=== PATIENT | female | born 1950 | race African-American/Black ===

== ENCOUNTER 2019-04-27 19:09 | Inpatient (IN) | payer MEDICARE, MEDICAID ==
[~2019-04-27] VITALS: Ht 157.5 cm; Wt 83.0 kg
[~2019-04-27 19:09] MED LIST: ASPIR 8181 MG ORAL; ATORVASTATIN CA20 MG ORAL; FLUOXETINE HCL20 MG ORAL; GABAPENTIN600 MG ORAL; IBUPROFEN600 MG ORAL; LATUDA20 MG PO; LORATADINE10 M1 PO; METFORMIN HCL500 M1 ORAL; METOPROLOL SUCC50 MG ORAL; OXYBUTYNIN5 MG/5 M1 PO
[2019-04-27 19:28] VITALS: BP 133/59
--- NOTE | 2019-04-27 19:28 | NUR ---
ER Nurse Note: Pt c/o shortness of breath since 1 month ago but is worse today. Pt stated she would get short of breath after walking short distances. HR elevated at 112 with deep breathing. Lung sounds clear, S1 and S2 heard. Pt stated hx of some cardiac problem and DM. Will continue to montior.
--- NOTE | 2019-04-27 19:31 | Emergency Room Report ---
History of Present Illness General Chief Complaint: Dyspnea/Respdistress Source: Patient, Medical Record Present Illness HPI Patient is a 68-year-old female presents after increased difficulty with breathing. She reports of increased dyspnea on exertion for the past 1 month. She states that she had noticed increased bilateral leg swelling for similar period of time. She reports having some prior history of abnormal ventricular function but cannot state exactly what she has wrong. She takes metformin for diabetes. She denies any bloody stools. She reports having progressive worsening shortness of breath. She appears to been on he was but is not currently taking any. She denies being a smoker. She had gradual onset of increased dyspnea. Allergies: Coded Allergies: IBUPROFEN (Unverified Allergy, Intermediate, 04/05/16) Patient History Past Medical History: see triage record Reviewed Nursing Documentation: PMH: Agreed; PSxH: Agreed Nursing Documentation-PMH Past Medical History: No History, Except For Hx Cardiac Problems: Yes - stent, heart problem Hx Hypertension: Yes Hx Diabetes: Yes Review of Systems All Other Systems: negative except mentioned in HPI Physical Exam Vital Signs Date Time Temp Pulse Resp B/P (MAP) Pulse Ox O2 Delivery O2 Flow Rate FiO2 04/27/19 19:20 97.9 112 20 133/59 (83) 98 Room Air Sp02 EP Interpretation: reviewed, normal General Appearance: normal inspection, alert, GCS 15, Chronically Ill Head: atraumatic Eyes: bilateral eye PERRL, bilateral eye conjunctivae pale ENT: normal ENT inspection, hearing grossly normal, normal voice Neck: normal inspection, full range of motion, supple, no bony tend Respiratory: normal inspection, lungs clear, normal breath sounds, no respiratory distress, no retraction, no wheezing Cardiovascular #1: regular rate, rhythm, edema Gastrointestinal: normal inspection, normal bowel sounds, non tender, soft, no guarding, no hernia Genitourinary: no CVA tenderness Musculoskeletal: normal inspection, back normal, normal range of motion Neurologic: normal inspection, alert, oriented x3, responsive, insurance attorney III-XII nml as tested, speech normal Psychiatric: normal inspection, judgement/insight normal, mood/affect normal Skin: pallor Medical Decision Making Diagnostic Impression: Primary Impression: Pancytopenia ER Course Patient present for shortness of breath. Differential included but was not limited to anemia, pneumonia, pneumothorax, myocardial infarction, pericardial effusion, congestive heart failure, acidosis. Because of complexity of patient' s case laboratory tests and imaging studies were ordered. Patient was noted to have significant shortness of breath on exertion but seems to be okay at rest. Oxygen was noted to be 100%. Patient a prior history of pancytopenia.Patient is noted to have significant anemia. Patient was started on blood transfusion after informed consent was obtained. Advised patient risk benefits and alternatives of obtaining blood which included infection allergic reactions among others. Patient indicated willingness to proceed with transfusion. Patient was discussed with Dr. Michael Herrera for inpatient management. Labs Test 04/27/19 19:25 04/27/19 20:18 White Blood Count 2.8 K/UL (4.8-10.8) Red Blood Count 2.48 M/UL (4.20-5.40) Hemoglobin 3.7 G/DL (12.0-16.0) Hematocrit 14.2 % (37.0-47.0) Mean Corpuscular Volume 57 FL (80-99) Mean Corpuscular Hemoglobin 15.1 PG (27.0-31.0) Mean Corpuscular Hemoglobin Concent 26.3 G/DL (32.0-36.0) Red Cell Distribution Width 15.3 % (11.6-14.8) Platelet Count 45 K/UL (150-450) Mean Platelet Volume 5.8 FL (6.5-10.1) Neutrophils (%) (Auto) % (45.0-75.0) Lymphocytes (%) (Auto) % (20.0-45.0) Monocytes (%) (Auto) % (1.0-10.0) Eosinophils (%) (Auto) % (0.0-3.0) Basophils (%) (Auto) % (0.0-2.0) Differential Total Cells Counted 100 Neutrophils % (Manual) 41 % (45-75) Lymphocytes % (Manual) 47 % (20-45) Monocytes % (Manual) 6 % (1-10) Eosinophils % (Manual) 5 % (0-3) Basophils % (Manual) 1 % (0-2) Band Neutrophils 0 % (0-8) Platelet Estimate Decreased Platelet Morphology Normal Polychromasia 1+ Hypochromasia 3+ Anisocytosis 3+ Microcytosis 3+ Prothrombin Time 12.3 SEC (9.30-11.50) Prothromb Time International Ratio 1.2 (0.9-1.1) Activated Partial Thromboplast Time 28 SEC (23-33) Sodium Level 139 MMOL/L (136-145) Potassium Level 4.0 MMOL/L (3.5-5.1) Chloride Level 108 MMOL/L (98-107) Carbon Dioxide Level 16 MMOL/L (21-32) Anion Gap 15 mmol/L (5-15) Blood Urea Nitrogen 13 mg/dL (7-18) Creatinine 1.0 MG/DL (0.55-1.30) Estimat Glomerular Filtration Rate > 60 mL/min (>60) Glucose Level 116 MG/DL (74-106) Calcium Level 8.4 MG/DL (8.5-10.1) Total Bilirubin 0.6 MG/DL (0.2-1.0) Aspartate Amino Transf (AST/SGOT) 45 U/L (15-37) Alanine Aminotransferase (ALT/SGPT) 35 U/L (12-78) Alkaline Phosphatase 159 U/L (46-116) Troponin I 0.016 ng/mL (0.000-0.056) Pro-B-Type Natriuretic Peptide 894 pg/mL (0-125) Total Protein 7.4 G/DL (6.4-8.2) Albumin 2.8 G/DL (3.4-5.0) Globulin 4.6 g/dL Albumin/Globulin Ratio 0.6 (1.0-2.7) Lipase 446 U/L (73-393) Thyroid Stimulating Hormone (TSH) 3.668 uiU/mL (0.358-3.740) Urine Color Pale yellow Urine Appearance Clear Urine pH 7 (4.5-8.0) Urine Specific [place] 1.005 (1.005-1.035) Urine Protein 1+ (NEGATIVE) Urine Glucose (UA) Negative (NEGATIVE) Urine Ketones Negative (NEGATIVE) Urine Blood Negative (NEGATIVE) Urine Nitrite Negative (NEGATIVE) Urine Bilirubin Negative (NEGATIVE) Urine Urobilinogen Normal MG/DL (0.0-1.0) Urine Leukocyte Esterase 2+ (NEGATIVE) Urine RBC 0-2 /HPF (0 - 2) Urine WBC 2-4 /HPF (0 - 2) Urine Squamous Epithelial Cells Few /LPF (NONE/OCC) Urine Bacteria Few /HPF (NONE) EKG Diagnostic Results Rate: normal Rhythm: NSR ST Segments: no acute changes Last Vital Signs Date Time Temp Pulse Resp B/P (MAP) Pulse Ox O2 Delivery O2 Flow Rate FiO2 04/27/19 19:20 97.9 112 20 133/59 (83) 98 Room Air Status: unchanged Disposition: ADMITTED INPATIENT Condition: Serious Michael Cruz MD Apr 27, 2019 19:31
[2019-04-27 19:47] LABS: HEMATOCRIT 14.2 % (37.0-47.0); MEAN CORPUSCULAR VOLUME 57 FL (80-99); PLATELET COUNT 45 K/UL (150-450); RED BLOOD COUNT 2.48 M/UL (4.20-5.40); RED CELL DISTRIBUTION WIDTH 15.3 % (11.6-14.8); WHITE BLOOD COUNT 2.8 K/UL (4.8-10.8)
[2019-04-27 19:59] LABS: INR 1.2 (0.9-1.1)
[2019-04-27 20:00] LABS: HEMOGLOBIN 3.7 G/DL (12.0-16.0)
[2019-04-27 20:02] LABS: ANION GAP 15 mmol/L (5-15); BLOOD UREA NITROGEN 13 mg/dL (7-18); CALCIUM 8.4 MG/DL (8.5-10.1); CARBON DIOXIDE 16 MMOL/L (21-32); CHLORIDE 108 MMOL/L (98-107); SODIUM 139 MMOL/L (136-145)
--- NOTE | 2019-04-27 20:13 | NUR ---
ER Nurse Note: Pt is aware of h&h level. Explained to pt about blood transfusion. Pt understand and consents to transfusion. Pt states first time having blood transfusion. Consent signed.
[2019-04-27 20:14] LABS: ALANINE AMINOTRANSFERASE 35 U/L (12-78); ALBUMIN 2.8 G/DL (3.4-5.0); ALBUMIN/GLOBULIN RATIO 0.6 (1.0-2.7); ALKALINE PHOSPHATASE 159 U/L (46-116); ASPARTATE AMINO TRANSFERASE 45 U/L (15-37); BILIRUBIN,TOTAL 0.6 MG/DL (0.2-1.0)
[2019-04-27 20:52] LABS: APPEARANCE,URINE CLEAR; BILIRUBIN, URINE NEGATIVE (NEGATIVE); COLOR,URINE PALE YELLOW; GLUCOSE, URINE (UA) NEGATIVE (NEGATIVE); KETONES,URINE NEGATIVE (NEGATIVE); LEUKOCYTE ESTERASE ,URINE 2+ (NEGATIVE); NITRITE,URINE NEGATIVE (NEGATIVE); PH,URINE 7 (4.5-8.0); PROTEIN,URINE 1+ (NEGATIVE); UROBILINOGEN,URINE NORMAL MG/DL (0.0-1.0)
[2019-04-27 21:10] VITALS: BP 117/56
[2019-04-27] MEDS ORDERED: Milk of Magnesia 30ml Ud ORAL PRN (21:30)
[2019-04-27 22:40] VITALS: BP 119/60
--- NOTE | 2019-04-27 22:43 | NUR ---
ER Nurse Note: Pt tolerating blood; no reactions, no signs of distress. VSS, no fever. Pt stated breathing is becoming easier. All safety measures met, will continue to motnior.
[2019-04-28] VITALS (10 sets, daily range): BP systolic 121–144; BP diastolic 64–86
--- NOTE | 2019-04-28 00:05 | NUR ---
ER Nurse Note: Pt receiving second unit of RBC. Pt toerating well. VSS, RA, no signs of distress. No beds avilable in SDU. Will ask ERMD for further orders. Alll safety measures met, will continue to montior.
[2019-04-28 01:46] LABS: HEMATOCRIT 17.8 % (37.0-47.0); MEAN CORPUSCULAR VOLUME 62 FL (80-99); PLATELET COUNT 65 K/UL (150-450); RED BLOOD COUNT 2.88 M/UL (4.20-5.40); RED CELL DISTRIBUTION WIDTH 23.8 % (11.6-14.8); WHITE BLOOD COUNT 3.3 K/UL (4.8-10.8)
[2019-04-28 02:00] LABS: HEMOGLOBIN 5.4 G/DL (12.0-16.0)
--- NOTE | 2019-04-28 02:16 | NUR ---
ER Nurse Note: Second unit completed, redraw of labs drawn and sent to lab. Hgb increased, <7 g/dl. Transfusing 3rd unit. No reactions. Will conitnue to motnor.
--- NOTE | 2019-04-28 03:24 | NUR ---
ER Nurse Note: Pt asleep, no signs of distress. Pt easily arousable, RA, VSS. Pt on third unit of blood. Will draw labs for repeat H&H. All safety measurses met; will continue to motnior.
--- NOTE | 2019-04-28 04:10 | NUR ---
ER Nurse Note: Pt a&ox4, VSS, RA, no signs of distress. Pt stated "I am feeling better and can breath easier." Pt is warm to touch, skin color approrate, not pallor, cap refill less than 3 secs. Repeat labs drawn and sent to lab, awaiting results. Pt is on fourth unit of blood; tolerating well. Daughter at bedside. Will continue to motnior.
[2019-04-28 04:24] LABS: HEMATOCRIT 20.7 % (37.0-47.0); MEAN CORPUSCULAR VOLUME 66 FL (80-99); PLATELET COUNT 50 K/UL (150-450); RED BLOOD COUNT 3.14 M/UL (4.20-5.40); RED CELL DISTRIBUTION WIDTH 24.7 % (11.6-14.8); WHITE BLOOD COUNT 2.9 K/UL (4.8-10.8)
[2019-04-28 04:36] LABS: HEMOGLOBIN 6.1 G/DL (12.0-16.0)
--- NOTE | 2019-04-28 05:01 | NUR ---
ER Nurse Note: Report given to ALEXYS Ulrich for continuity of care. Pt stable for transfer. All belongings taken with daughter at bedside.
--- NOTE | 2019-04-28 05:25 | NUR ---
ER Nurse Note: Pt departed ER on 524. Pt took all belongings, checked with primary nurse ALEXYS Rosario in tele. Daughter at bedside. Endorsed care to ALEXYS Rosario for continuity oif care.
--- NOTE | 2019-04-28 05:30 | NUR ---
NURSE NOTES: Pt arrived got ER via gurney. Got report from Marianna REARDON. Pt resting on bed comfortably. No s/s of distress or discomfort noted. No skin issues noted. Pt fully alert and able to answer all of my questions. VSS BP:122/71 HR:91 R:18 O2:99% on room air T: 98.3. Denies any pain. Denies n/v. Pt receiving last unit of blood. Pt ambulates steady. Continue to monitor. All orders put in by Dr. Herrera.
[2019-04-28 05:56] LABS: % IRON SATURATION 2 % (15-50); IRON 11 ug/dL (50-175); TOTAL IRON BINDING CAPACITY 566 ug/dL (250-450)
[2019-04-28 06:10] LABS: ALANINE AMINOTRANSFERASE 33 U/L (12-78); ALBUMIN 2.6 G/DL (3.4-5.0); ALBUMIN/GLOBULIN RATIO 0.6 (1.0-2.7); ALKALINE PHOSPHATASE 142 U/L (46-116); ANION GAP 9 mmol/L (5-15); ASPARTATE AMINO TRANSFERASE 43 U/L (15-37); BILIRUBIN,TOTAL 1.5 MG/DL (0.2-1.0); BLOOD UREA NITROGEN 13 mg/dL (7-18); CALCIUM 8.2 MG/DL (8.5-10.1); CARBON DIOXIDE 21 MMOL/L (21-32); CHLORIDE 111 MMOL/L (98-107); CREATININE 0.9 MG/DL (0.55-1.30); FERRITIN 4 NG/ML (8-388); POTASSIUM 3.5 MMOL/L (3.5-5.1); SODIUM 141 MMOL/L (136-145)
[2019-04-28 06:18] LABS: BILIRUBIN,DIRECT 0.5 MG/DL (0.0-0.3)
[2019-04-28] MEDS: NovoLOG Insulin Flexpen SUBQ SCH ×4 (06:30→21:00)
--- NOTE | 2019-04-28 07:25 | NUR ---
HAND-OFF: Report given to Juan Carlos REARDON.
--- NOTE | 2019-04-28 07:29 | NUR ---
NURSE NOTES: Report received from ALEXYS Rosario. Pt is sitting up in bed eating breakfast, with no signs of distress. A+Ox4, denies pain/SOB. Respirations are even and unlabored on room air. IV sites are intact, with one running remainder of unit of PRBCs. Bed is at lowest position, brakes engaged, siderails x2, bed alarm on, and call light within reach. Pt is in stable condition at this time; will continue to monitor.
--- NOTE | 2019-04-28 08:35 | NUR ---
NURSE NOTES: Dr. Herrera ordered two units of PRBCs pending h+h in newest CBC. Awaiting lab draw and results.
[2019-04-28] MEDS: Metoprolol Succinate XL 50mg tab ORAL SCH (08:55)
--- NOTE | 2019-04-28 09:00 | NUR ---
NURSE NOTES: Unable to fully reconcile medications due to patient and daughter not able to recall what they were. Only able to state that she takes metformin and does use insulin. Per daughter she takes a lot of medications.
[2019-04-28 09:46] LABS: HEMATOCRIT 24.4 % (37.0-47.0); HEMOGLOBIN 7.3 G/DL (12.0-16.0); MEAN CORPUSCULAR VOLUME 67 FL (80-99); PLATELET COUNT 60 K/UL (150-450); RED BLOOD COUNT 3.64 M/UL (4.20-5.40); RED CELL DISTRIBUTION WIDTH 24.5 % (11.6-14.8); WHITE BLOOD COUNT 2.7 K/UL (4.8-10.8)
--- NOTE | 2019-04-28 11:02 | NUR ---
NURSE NOTES: hgb 7.3. Per Dr. Herrera, transfuse two units. Will go down and get blood after setting up tubing.
--- NOTE | 2019-04-28 11:30 | History and Physical Report ---
DATE OF ADMISSION: 04/27/2019 CHIEF COMPLAINT: Anemia and pancytopenia. HISTORY OF PRESENT ILLNESS: The patient is a 68-year-old female. She has a history of diabetes, hypertension, hepatitis C. She presented from home with complaints of one month of worsening dyspnea on exertion and shortness of breath. The patient denies any chest pain. On evaluation in the emergency room, she was noted to have a hemoglobin of 3.7 and a white count of 2.8, platelet count of 45. She is currently status post transfusion, is now admitted for further evaluation and care. PAST MEDICAL HISTORY: As above. PAST SURGICAL HISTORY: None. CURRENT MEDICATIONS: Reconciled and reviewed. ALLERGIES: Include ibuprofen. FAMILY HISTORY: Noncontributory. SOCIAL HISTORY: Negative for tobacco, ethanol, or drugs. REVIEW OF SYSTEMS: GENERAL: No fevers or chills. HEENT: No headaches or visual changes. CARDIOPULMONARY: Positive shortness of breath, but no chest pain. Positive dyspnea on exertion. GASTROINTESTINAL: No nausea or vomiting. GENITOURINARY: No urgency or frequency. MUSCULOSKELETAL: No joint pain or swelling. NEUROLOGIC: No evidence of seizures. PHYSICAL EXAMINATION: VITAL SIGNS: Temperature 98.3, pulse 91, respirations 18, and blood pressure 122/71. GENERAL: The patient is well-developed, no apparent distress. HEART: Regular rate and rhythm. LUNGS: Clear. ABDOMEN: Soft, nontender, nondistended. EXTREMITIES: Without clubbing, cyanosis, or edema. LABORATORY DATA: Labs showed a white count of 2.8, hemoglobin 3.7, hematocrit of 14, platelet count of 45. Sodium 139, potassium 4, chloride 108, bicarb 16. AST was 45, ALT 35. Bilirubin of 1.5. Natriuretic peptide level was 894. Lipase of 446. UA was clear. ASSESSMENT: This is a pleasant 68-year-old female admitted with complaints of dyspnea on exertion secondary to anemia of unclear etiology. PROBLEM LIST: 1. Severe anemia. 2. Rule out GI bleed. 3. Diabetes. 4. Hypertension. PLAN: Transfuse hemoglobin greater than 8. Hematology/Oncology consultation. Check stool for occult blood. Iron infusion for low iron. Consider GI evaluation for colonoscopy. Michael Herrera M.D. DR: MENA JOB#: [id number] CC:
--- NOTE | 2019-04-28 11:53 | NUR ---
NURSE NOTES: Blood tranfusion started. No s/s of reaction after 15min. Patient stable and resting comfortably. Will continue to monitor.
--- NOTE | 2019-04-28 14:07 | NUR ---
NURSE NOTES: Pt going down for CT.
--- NOTE | 2019-04-28 14:25 | NUR ---
NURSE NOTES: Patient back from CT. Blood transfusion continued
--- NOTE | 2019-04-28 15:24 | NUR ---
CASE MANAGEMENT:REVIEW 68 YR OLD FEMALE BIBA FROM HOME CC; WORSENING SOB SI: SYMPTOMATIC ANEMIA. PANCYTOPENIA 97.9 112 20 133/59 98% ON RA 'WBC-2.8 RBC-2.4 H/H-3.7/14.2 PLT-45 LIPASE+446 IS: 5 UNITS PRBC'S ORDERED TRANSFUSED 2 UNITS : TO TELEMETRY *INTERQUAL CRITERIA MET 04/28/19 SI: H/H-5.4/17.8 IS: TRANSFUSE 3 UNITS PRBC'S : TELEMETRY
--- NOTE | 2019-04-28 15:52 | NUR ---
NURSE NOTES: Unit of PRBC complete. Second unit started. Patient stable with RR even and unlabored.VSS. No s/s of reaction after 15min. Will continue to monitor.
--- NOTE | 2019-04-28 15:52 | Diagnostic Imaging Report ---
Indication: Abdominal pain Technique: Continuous helical transaxial imaging of the abdomen and pelvis was obtained from the lung bases to the pubic symphysis. No intravenous contrast was administered. Coronal 2-D reformats were also obtained. Automatic Exposure Control was utilized. Total Dose length Product (DLP): [address] Dose Index Volume (CTDIvol): 50 mGy Comparison: none Findings: Somewhat nodular ill-defined groundglass opacities noted at the lung bases nonspecific. The spleen is enlarged. There is nodularity of the liver. There is increase opacification in the area of the upper stomach and distal esophagus likely portosystemic varices. There is thickening of the gallbladder wall. Aortoiliac calcifications are moderate in degree. Bowel gas pattern appears nonobstructive. There is a left hip prosthesis and streak artifact. Few diverticula noted in the colon. The appendix is normal. Generalized subcutaneous edema noted throughout the abdomen wall. There is no hydronephrosis. IMPRESSION: Chronic liver disease/cirrhosis with signs of portal hypertension including splenomegaly and suspected portosystemic varices surrounding the distal esophagus and stomach. Normal appendix Anasarca Thickening of the gallbladder wall nonspecific. Diverticulosis of the colon. No definite diverticulitis. Atherosclerotic vascular disease. Left total hip arthroplasty The CT scanner at [facility] is accredited by the [employer] and the scans are performed using dose optimization techniques as appropriate to a performed exam including Automatic Exposure control.
[2019-04-28] MEDS: Spironolactone 25mg tab ORAL SCH (18:35)
--- NOTE | 2019-04-28 19:18 | NUR ---
HAND-OFF: Report given to Bess Mandujano RN. Patient stable. Blood transfusion completed with no adverse events.
--- NOTE | 2019-04-28 19:19 | NUR ---
NURSE NOTES: Received report from Liza/ALEXYS Chavez. Patient is awake, lying in semi combs's; resting comfortably. A/Ox4. Denies pain at this time. No signs of acute cardiorespiratory distress noted. Checked IV site and flushed. No erythema, bleeding or infiltration noted. Bed at lowest position, brakes on, siderailx3. Call light within reach. Will continue to monitor.
--- NOTE | 2019-04-28 19:51 | Cardiology Report ---
APPROVED REPORT EKG Measurement Heart [id number] MI [id number] Sinus tachycardia Right bundle branch block and LAFB (Bifascicular block) Abnormal ECG
[2019-04-28] MEDS: Atorvastatin 20mg tab ORAL SCH (21:53)
[2019-04-28] MEDS: Iron Sucrose 100 MG in NS 55 ML IV SCH (21:54)
--- NOTE | 2019-04-28 23:30 | Progress Note ---
DATE: 04/28/2019 CARDIOLOGY PROGRESS NOTE SUBJECTIVE: The patient is status post packed red blood cell transfusion x2. She still feels weak and fatigued, but less short of breath. She denies chest pain. OBJECTIVE: VITAL SIGNS: Blood pressure 121/86, pulse 73, respirations 18, afebrile. LUNGS: Clear. CARDIAC: Regular rhythm and rate. Normal S1, S2 with a fourth heart sound and a 1/6 systolic murmur at base. ABDOMEN: Soft. EXTREMITIES: Trace dependent edema. LABORATORY DATA: White count 2.7, hemoglobin 7.3, platelets 60. Potassium 3.5, albumin 2.6. IMPRESSION: 1. Pancytopenia. 2. Acute diastolic congestive heart failure precipitated by severe anemia. 3. Hypertensive heart disease. 4. Stable angina. 5. Coronary artery disease with prior coronary stent. 6. Severe iron deficiency. 7. Chronic liver disease. 8. Moderate protein-calorie malnutrition. PLAN: 1. Nasal oxygen. 2. IV iron. 3. SCDs. 4. Maintain current antihypertensives. 5. Avoid antiplatelet and anticoagulant therapy at this time. Shaggy Babcock M.D. DR: LSELIE JOB#: [id number] CC:
[2019-04-29] VITALS: BP 121/60
[2019-04-29 04:00] VITALS: BP 124/61
--- NOTE | 2019-04-29 04:15 | Consultation ---
DATE OF CONSULTATION: 04/27/2019 CARDIOLOGY CONSULTATION CONSULTING PHYSICIAN: Shaggy Babcock M.D. REFERRING PHYSICIAN: Michael Herrera M.D. REASON FOR CONSULTATION: Congestive heart failure in the setting of severe anemia. HISTORY OF PRESENT ILLNESS: The patient is a 68-year-old, female. She has a history of hypertension but no other cardiovascular disease. She has had difficulty breathing and has been increasingly short of breath with exertion for the past month. She has noted swelling of her legs during this period as well. She states that her blood pressure has affected her heart but it has been "okay" She denies any history of chest pain or heart attack in the past. She was noted to have an elevated natriuretic peptide assay. I have been asked to assist with cardiovascular care. PAST MEDICAL HISTORY: Non-insulin requiring diabetes mellitus, hypertension, history of coronary stent. ALLERGIES: Include ibuprofen. SOCIAL HISTORY: Negative for smoking, alcohol, or substance abuse. FAMILY HISTORY: Noncontributory. MEDICATIONS: Prior to admission, reviewed and reconciled. REVIEW OF SYSTEMS: No fevers or chills. No history of seizure or stroke. No known history of thyroid disorder. She does not know her cholesterol level and does not take any anticholesterol drugs. She has not noted any melena or bright red blood per rectum. She denies history of kidney disease. There is no history of asthma or abnormal blood clotting. PHYSICAL EXAMINATION: VITAL SIGNS: Blood pressure 133/59, pulse 112, respiratory rate 20, afebrile. HEENT: Normocephalic and atraumatic. Conjunctival pallor. Oropharynx clear. NECK: Supple. Jugular venous pressure normal. LUNGS: Clear. CARDIAC: Regular rhythm. Rapid rate. Normal S1, increased splitting S2. A 1/6 systolic murmur at base. ABDOMEN: Soft and nontender. EXTREMITIES: Good pulses. A 1+ dependent edema. NEUROLOGIC: Nonfocal. LABORATORY AND DIAGNOSTIC DATA: EKG sinus tachycardia, left anterior superior hemiblock, right bundle-branch block. Labs, pro-natriuretic peptide is 894. Troponin 0.016. BUN 13, creatinine 1, potassium 4. TSH 3.6. White count 2.8, hemoglobin 3.7, and platelet count 45,000. IMPRESSION: 1. Severe pancytopenia. 2. Acute diastolic congestive heart failure precipitated by severe anemia. 3. Coronary artery disease with history of coronary stent. 4. Hypertensive heart disease. 5. Type 2 diabetes mellitus. PLAN: 1. Cardiac monitoring. 2. Nasal oxygen. 3. Packed red blood cell transfusion. 4. Hold all anti-platelet drugs. 5. Consider topical nitrates. 6. Echocardiogram to follow for evaluation of left ventricular function. 7. Trend natriuretic peptide assay. Shaggy Babcock M.D. DR: Tom JOB#: [id number] CC:
--- NOTE | 2019-04-29 05:11 | NUR ---
NURSE NOTES: Resting throughout the night. No significant change of condition noted. Will continue to monitor.
[2019-04-29] MEDS: NovoLOG Insulin Flexpen SUBQ SCH ×4 (06:23→20:35)
[2019-04-29 07:04] LABS: HEMATOCRIT 30.1 % (37.0-47.0); HEMOGLOBIN 9.3 G/DL (12.0-16.0); MEAN CORPUSCULAR VOLUME 69 FL (80-99); PLATELET COUNT 54 K/UL (150-450); RED BLOOD COUNT 4.34 M/UL (4.20-5.40); RED CELL DISTRIBUTION WIDTH 23.7 % (11.6-14.8); WHITE BLOOD COUNT 3.2 K/UL (4.8-10.8)
--- NOTE | 2019-04-29 07:23 | NUR ---
HAND-OFF: Report given to ALEXYS Chavez. Patient is in stable condition. Plan of care endorsed.
--- NOTE | 2019-04-29 07:24 | NUR ---
NURSE NOTES: Report received from ALEXYS Kellogg. Pt is lying comfortably in semi-fowlers. A+Ox4, denies pain/SOB. Respirations are even and unlabored on room air. IV site in intact and saline locked. Bed is at lowest position, brakes engaged, siderails x2, bed alarm on, and call light within reach. Pt is in stable condition at this time; will continue to monitor.
[2019-04-29 07:38] LABS: ANION GAP 9 mmol/L (5-15); BLOOD UREA NITROGEN 14 mg/dL (7-18); CARBON DIOXIDE 22 MMOL/L (21-32); CHLORIDE 106 MMOL/L (98-107); CREATININE 0.9 MG/DL (0.55-1.30); POTASSIUM 3.5 MMOL/L (3.5-5.1); SODIUM 137 MMOL/L (136-145)
[2019-04-29 08:00] VITALS: BP 120/66
--- NOTE | 2019-04-29 08:27 | General Progress Note ---
Assessment/Plan Problem List: (1) Anemia ICD Codes: D64.9 - Anemia, unspecified SNOMED: 006737574 (2) Cirrhosis ICD Codes: K74.60 - Unspecified cirrhosis of liver SNOMED: 23256246 (3) Transaminitis ICD Codes: R74.0 - Nonspecific elevation of levels of transaminase and lactic acid dehydrogenase [LDH] SNOMED: 770581408 (4) Pancytopenia ICD Codes: D61.818 - Other pancytopenia SNOMED: 093594114 (5) Syncope ICD Codes: R55 - Syncope and collapse SNOMED: 835683575 Status: stable Assessment/Plan: PPI monitor for bleeding stool ob iron replacement heme and GI eval Subjective ROS Limited/Unobtainable: No Constitutional: Reports: weakness HEENT: Reports: no symptoms Cardiovascular: Reports: no symptoms Respiratory: Reports: no symptoms Gastrointestinal/Abdominal: Reports: no symptoms Genitourinary: Reports: no symptoms Neurologic/Psychiatric: Reports: no symptoms Endocrine: Reports: no symptoms Hematologic/Lymphatic: Reports: anemia Allergies: Coded Allergies: IBUPROFEN (Unverified Allergy, Intermediate, 04/05/16) All Systems: reviewed and negative except above Subjective no events. s/p transfusion. feels "better." decreased sob/degroot. no signs of bleeding ct with ?cirrhosis stool ob pending Objective Last 24 Hour Vital Signs Date Time Temp Pulse Resp B/P (MAP) Pulse Ox O2 Delivery O2 Flow Rate FiO2 04/29/19 08:00 98.3 82 18 120/66 (84) 97 04/29/19 04:00 97.3 72 18 124/61 (82) 95 04/29/19 04:00 81 04/29/19 00:00 75 04/29/19 00:00 97.0 77 19 121/60 (80) 95 04/28/19 21:00 Room Air 04/28/19 20:00 97.3 79 18 126/76 (93) 97 04/28/19 20:00 72 04/28/19 16:00 98.3 75 18 144/83 (103) 99 04/28/19 16:00 76 04/28/19 12:00 74 04/28/19 12:00 98.0 73 18 121/86 (98) 100 04/28/19 08:58 Room Air 04/28/19 08:55 97 140/83 Intake and Output 04/28/19 04/29/19 19:00 07:00 Intake Total 730 ml Balance 730 ml Intake Oral 730 ml # Voids 3 # Bowel Movements 4 Laboratory Tests 04/28/19 09:10: White Blood Count 2.7L, Red Blood Count 3.64L, Hemoglobin 7.3L, Hematocrit 24.4L , Mean Corpuscular Volume 67L, Mean Corpuscular Hemoglobin 20.0L, Mean Corpuscular Hemoglobin Concent 29.9L, Red Cell Distribution Width 24.5H, Platelet Count 60L, Mean Platelet Volume 7.5, Neutrophils (%) (Auto) , Lymphocytes (%) (Auto) , Monocytes (%) (Auto) , Eosinophils (%) (Auto) , Basophils (%) (Auto) , Differential Total Cells Counted 100, Neutrophils % ( Manual) 55, Lymphocytes % (Manual) 31, Monocytes % (Manual) 10, Eosinophils % ( Manual) 4H, Basophils % (Manual) 0, Band Neutrophils 0, Platelet Estimate DecreasedL, Platelet Morphology Normal, Hypochromasia 2+, Anisocytosis 3+, Microcytosis 2+ 04/29/19 05:21: White Blood Count 3.2L, Red Blood Count 4.34, Hemoglobin 9.3L, Hematocrit 30.1L , Mean Corpuscular Volume 69L, Mean Corpuscular Hemoglobin 21.5L, Mean Corpuscular Hemoglobin Concent 31.0L, Red Cell Distribution Width 23.7H, Platelet Count 54L, Mean Platelet Volume 6.8, Neutrophils (%) (Auto) , Lymphocytes (%) (Auto) , Monocytes (%) (Auto) , Eosinophils (%) (Auto) , Basophils (%) (Auto) , Neutrophils % (Manual) [Pending], Lymphocytes % (Manual) [Pending], Platelet Estimate [Pending], Platelet Morphology [Pending], Sodium Level 137, Potassium Level 3.5, Chloride Level 106, Carbon Dioxide Level 22, Anion Gap 9, Blood Urea Nitrogen 14, Creatinine 0.9, Estimat Glomerular Filtration Rate > 60, Glucose Level 119H, Calcium Level 8.0L, Magnesium Level 1.7L, Thyroid Stimulating Hormone (TSH) 2.978 Height (Feet): 5 Height (Inches): 2.00 Weight (Pounds): 184 General Appearance: WD/WN, alert Neck: normal inspection Cardiovascular: normal rate, regular rhythm Respiratory/Chest: chest wall non-tender, lungs clear, normal breath sounds, no respiratory distress Abdomen: normal bowel sounds, non tender, soft, no organomegaly Edema: no edema noted Arm (L), no edema noted Arm (R), no edema noted Leg (L), no edema noted Leg (R), no edema noted Pedal (L), no edema noted Pedal (R), no edema noted Generalized Michael Herrera MD Apr 29, 2019 08:27
[2019-04-29] MEDS: Metoprolol Succinate XL 50mg tab ORAL SCH (09:09)
[2019-04-29] MEDS: Spironolactone 25mg tab ORAL SCH (09:09)
[2019-04-29] MEDS ORDERED: Tubing IV Secondary IV ONE (10:02)
--- NOTE | 2019-04-29 10:47 | NUR ---
CASE MANAGEMENT:REVIEW 04/29/19 SI: ANEMIA. CIRRHOSIS. PANCYTOPENIA 98.3 82 18 120/66 97% ON RA WBC-3.2 H/H-9.3/30.1 PLT-54 IS: IV MAG SULFATE X1 IV VENOFER QHS ALDACTONE PO QD PROZAC PO QD TOPROL XL PO QD : TELEMETRY STATUS DCP: RETURN HOME UPON DISCHARGE PLAN: 2DECHO GI CONSULT HEMOC CONSULT
--- NOTE | 2019-04-29 11:00 | NUR ---
NURSE NOTES: Pt aware of the need for a stool sample for occult blood. Awaiting next bowel movement.
[2019-04-29 12:00] VITALS: BP 128/63
[2019-04-29 15:43] VITALS: BP 123/69
--- NOTE | 2019-04-29 16:33 | NUR ---
*-* INSURANCE *-* ALL CLINICALS AND REVIEWS HAVE BEEN FAXED TO: [employer] GOME[employer]:KATHIE WALTER# [id number] P: [phone] F: [phone]
--- NOTE | 2019-04-29 18:24 | Cardiology Report ---
APPROVED REPORT EXAM: Two-dimensional and M-mode echocardiogram with Doppler and color Doppler. INDICATION Congestive Heart Failure M-Mode DIMENSIONS IVSd1.1 (0.7-1.1cm)Left Atrium (MM)2.8 (1.6-4.0cm) LVDd4.6 (3.5-5.6cm)Aortic Root2.8 (2.0-3.7cm) PWd1.1 (0.7-1.1cm)Aortic Cusp Exc.1.0 (1.5-2.0cm) IVSs1.7 cm LVDs3.0 (2.5-4.0cm) PWs1.1 cm Technically difficult study due to poor parasternal acoustical windows. Normal left ventricular chamber size, low normal systolic function and wall motion to extent visualize except akinetic thinned proximal to mid posterior wall hypokintic prox to mid inferior wall and mid inferolatereal reese Left ventricular ejection fraction estimated to be 50%. No left ventricular hypertrophy. No evidence of pericardial effusion. Mild left atrial enlargement . Right cardiac chamber sizes are within normal limits. Aortic valve calcification with decreased cusp excursion c/w aortic stenosis. Thickened mitral valve leaflets with normal excursion. Mitral annulus and aortic root calcification. Normal pulmonic valve structure. Normal tricuspid valve structure. IVC dilated at 2.7 cm with slightly physiologic collapse suggestive of increased RA pressure. A color flow and spectral Doppler study was performed and revealed: Trace aortic regurgitation. Peak aortic valve gradient of 51 mm Hg and a mean of 29 mmHg. Aortic valve area 1.1 cm2 calculated by continuity equation. Moderate mitral regurgitation. Mitral diastolic velocities suggest reduced left ventricular relaxation c/w mild LV diastolic dysfunction (Grade I ). Moderate tricuspid regurgitation. Tricuspid systolic velocities suggests peak right ventricular systolic pressure of 46 mmHg, consistent with moderate pulmonary hypertension. Mild Pulmonic regurgitation present.
--- NOTE | 2019-04-29 19:18 | NUR ---
HAND-OFF: Report given to ALEXYS Lucero. Pt is sitting up eating a snack, in stable condition. Plan of care endorsed.
--- NOTE | 2019-04-29 19:51 | NUR ---
NURSE NOTES: Received patient from ALEXYS Chavez. Patient is alert, talkative, and sitting in bed comfortably eating a snack. No signs of distress or pain noted. Patient is ambulatory, wearing nonslip socks, and able to make needs known. IV site checked, patent and intact, no signs of erythema, redness, infiltration, or bleeding. Bed in lowest position, brakes on, and call light within reach. Will continue plan of care.
[2019-04-29 20:00] VITALS: BP 118/58
[2019-04-29] MEDS: Atorvastatin 20mg tab ORAL SCH (20:35)
[2019-04-29] MEDS: Iron Sucrose 100 MG in NS 55 ML IV SCH (20:36)
[2019-04-30] VITALS: BP 111/59
--- NOTE | 2019-04-30 00:15 | Progress Note ---
DATE: 04/29/2019 CARDIOLOGY PROGRESS NOTE SUBJECTIVE: The patient is status post transfusion. Shortness of breath is improved, but not resolved. OBJECTIVE: VITAL SIGNS: Blood pressure 120/66, pulse 82, respirations 16, afebrile. LUNGS: With few rales. CARDIAC: Regular rhythm and rate. Normal S1, S2. A 1/6 systolic murmur at apex. ABDOMEN: Soft. No ascites. EXTREMITIES: 1+ dependent edema. LABORATORY DATA: White count 3.3, hemoglobin 9.3, platelets 54,000. TSH 2.9. Sodium 137, potassium 3.5, bicarb 22, BUN 14, creatinine 0.9, magnesium 1.7. Echocardiogram was obtained today and reviewed. The study reveals normal ejection fraction, although wall motion could not be assessed. There was mild aortic valve stenosis with valve area of 1.1 cm2 and exgf-[id number] pulmonary hypertension with PA systolic pressure estimate of 46. IMPRESSION: 1. Cirrhosis. 2. Acute on chronic diastolic congestive heart failure. 3. Hypomagnesemia. 4. Iron deficiency. 5. Ischemic heart disease. 6. Hypertensive heart disease. PLAN: 1. IV iron. 2. IV magnesium replacement. 3. Follow up stool occult blood test. 4. Maximize anti-failure regimen. 5. Hold anti-platelet drugs in view of low platelet count. 6. Avoid hypovolemia and tight blood pressure control in the setting of aortic stenosis. Shaggy Babcock M.D. DR: LESLIE JOB#: [id number] CC:
--- NOTE | 2019-04-30 03:17 | NUR ---
NURSE NOTES: Patient asleep and resting comfortably. No signs of distress or pain. Bed in lowest position, brakes on, call light within reach.
[2019-04-30 04:00] VITALS: BP 114/65
[2019-04-30] MEDS: NovoLOG Insulin Flexpen SUBQ SCH ×4 (06:24→20:35)
[2019-04-30 06:33] LABS: HEMATOCRIT 29.3 % (37.0-47.0); MEAN CORPUSCULAR VOLUME 70 FL (80-99); PLATELET COUNT 56 K/UL (150-450); RED BLOOD COUNT 4.21 M/UL (4.20-5.40); RED CELL DISTRIBUTION WIDTH 24.3 % (11.6-14.8); WHITE BLOOD COUNT 3.6 K/UL (4.8-10.8)
[2019-04-30 07:00] LABS: ALANINE AMINOTRANSFERASE 36 U/L (12-78); ALBUMIN 2.6 G/DL (3.4-5.0); ALBUMIN/GLOBULIN RATIO 0.6 (1.0-2.7); ALKALINE PHOSPHATASE 135 U/L (46-116); ANION GAP 8 mmol/L (5-15); ASPARTATE AMINO TRANSFERASE 55 U/L (15-37); BILIRUBIN,TOTAL 1.1 MG/DL (0.2-1.0); BLOOD UREA NITROGEN 13 mg/dL (7-18); CALCIUM 8.3 MG/DL (8.5-10.1); CARBON DIOXIDE 23 MMOL/L (21-32); CHLORIDE 108 MMOL/L (98-107); CREATININE 0.8 MG/DL (0.55-1.30); POTASSIUM 3.5 MMOL/L (3.5-5.1); SODIUM 139 MMOL/L (136-145)
[2019-04-30 07:01] LABS: BILIRUBIN,DIRECT 0.4 MG/DL (0.0-0.3)
--- NOTE | 2019-04-30 07:10 | NUR ---
NURSE NOTES: Nurse report given by Ingrid RN. Patient's awake and eating breakfast in bed, high combs position. Patient's AO x 4, denies pain, no s/s of distress or SOB. Bed low and locked, call light within reach. IV is patent and asymptomatic. Will continue to monitor.
--- NOTE | 2019-04-30 07:32 | NUR ---
HAND-OFF: Report given to ALEXYS Lindquist. Patient is awake lying high-combs's eating breakfast. In stable condition.
[2019-04-30 08:00] VITALS: BP 121/48
--- NOTE | 2019-04-30 09:15 | General Progress Note ---
Assessment/Plan Problem List: (1) Anemia ICD Codes: D64.9 - Anemia, unspecified SNOMED: 357052002 (2) Cirrhosis ICD Codes: K74.60 - Unspecified cirrhosis of liver SNOMED: 17072282 (3) Transaminitis ICD Codes: R74.0 - Nonspecific elevation of levels of transaminase and lactic acid dehydrogenase [LDH] SNOMED: 725907663 (4) Pancytopenia ICD Codes: D61.818 - Other pancytopenia SNOMED: 299630211 (5) Syncope ICD Codes: R55 - Syncope and collapse SNOMED: 001389389 Status: stable Assessment/Plan: PPI monitor for bleeding stool ob iron replacement heme and GI eval pending Subjective ROS Limited/Unobtainable: No Constitutional: Reports: malaise, weakness HEENT: Reports: no symptoms Cardiovascular: Reports: no symptoms Respiratory: Reports: no symptoms Gastrointestinal/Abdominal: Reports: no symptoms Genitourinary: Reports: no symptoms Neurologic/Psychiatric: Reports: no symptoms Endocrine: Reports: no symptoms Hematologic/Lymphatic: Reports: anemia Allergies: Coded Allergies: IBUPROFEN (Unverified Allergy, Intermediate, 04/05/16) All Systems: reviewed and negative except above Subjective no events. feels better. no bleeding noted. no cp/sob/degroot Objective Last 24 Hour Vital Signs Date Time Temp Pulse Resp B/P (MAP) Pulse Ox O2 Delivery O2 Flow Rate FiO2 04/30/19 04:00 97.7 80 16 114/65 (81) 96 04/30/19 04:00 85 04/30/19 00:00 74 04/30/19 00:00 98.2 84 18 111/59 (76) 97 04/29/19 21:00 Room Air 04/29/19 20:00 99.4 77 18 118/58 (78) 97 04/29/19 20:00 70 04/29/19 16:00 66 04/29/19 15:43 98.9 69 18 123/69 (87) 98 04/29/19 12:00 67 04/29/19 12:00 97.5 75 18 128/63 (84) 98 Intake and Output 04/29/19 04/30/19 19:00 07:00 Intake Total 850 ml 480 ml Balance 850 ml 480 ml Intake Oral 850 ml 480 ml # Voids 6 4 Laboratory Tests 04/30/19 05:38: White Blood Count 3.6L, Red Blood Count 4.21, Hemoglobin 9.0L, Hematocrit 29.3L , Mean Corpuscular Volume 70L, Mean Corpuscular Hemoglobin 21.3L, Mean Corpuscular Hemoglobin Concent 30.6L, Red Cell Distribution Width 24.3H, Platelet Count 56L, Mean Platelet Volume 7.7, Neutrophils (%) (Auto) , Lymphocytes (%) (Auto) , Monocytes (%) (Auto) , Eosinophils (%) (Auto) , Basophils (%) (Auto) , Differential Total Cells Counted 100, Neutrophils % ( Manual) 53, Lymphocytes % (Manual) 32, Monocytes % (Manual) 11H, Eosinophils % ( Manual) 3, Basophils % (Manual) 1, Band Neutrophils 0, Platelet Estimate DecreasedL, Platelet Morphology Normal, Anisocytosis 2+, Sodium Level 139, Potassium Level 3.5, Chloride Level 108H, Carbon Dioxide Level 23, Anion Gap 8, Blood Urea Nitrogen 13, Creatinine 0.8, Estimat Glomerular Filtration Rate > 60 , Glucose Level 103, Calcium Level 8.3L, Total Bilirubin 1.1H, Direct Bilirubin 0.4H, Aspartate Amino Transf (AST/SGOT) 55H, Alanine Aminotransferase (ALT/SGPT ) 36, Alkaline Phosphatase 135H, Pro-B-Type Natriuretic Peptide 1226H, Total Protein 7.0, Albumin 2.6L, Globulin 4.4, Albumin/Globulin Ratio 0.6L Height (Feet): 5 Height (Inches): 2.00 Weight (Pounds): 184 General Appearance: WD/WN, alert Neck: supple Cardiovascular: normal rate Respiratory/Chest: chest wall non-tender, lungs clear, normal breath sounds Abdomen: normal bowel sounds, non tender, soft, no organomegaly Edema: no edema noted Arm (L), no edema noted Arm (R), no edema noted Leg (L), no edema noted Leg (R), no edema noted Pedal (L), no edema noted Pedal (R), no edema noted Generalized Michael Herrera MD Apr 30, 2019 09:15
[2019-04-30] MEDS: Metoprolol Succinate XL 50mg tab ORAL SCH (09:55)
[2019-04-30] MEDS: Spironolactone 25mg tab ORAL SCH (09:55)
--- NOTE | 2019-04-30 10:16 | NUR ---
CASE MANAGEMENT:REVIEW 04/30/19 SI:ANEMIA. CIRRHOSIS. PANCYTOPENIA 97.7 80 16 114/65 96% ON RA H/H-9.0/29.3 PLT-56 IS: IV VENOFER QHS PROTONIX PO QD K-DUR PO X1 ALDACTONE PO QD PROZAC PO QD TOPROL XL PO QD : TELEMETRY STATUS
[2019-04-30 12:00] VITALS: BP 120/71
[2019-04-30 16:00] VITALS: BP 96/56
[2019-04-30] MEDS ORDERED: Tubing IV Secondary IV ONE (18:16)
[2019-04-30] MEDS ORDERED: NS 275ml ONE (18:16)
--- NOTE | 2019-04-30 19:14 | NUR ---
HAND-OFF: Report given to Ingrid RN. Plan of care endorsed. Patient's stable.
--- NOTE | 2019-04-30 19:24 | NUR ---
NURSE NOTES: Called Dr. Marcum regarding additional labs for patient in AM. Received call from Dr. Marcum to put Plateletpheresis order in for 0800 STAT on 05/01/19 and that he will put lab orders in. Noted and carried out.
--- NOTE | 2019-04-30 19:53 | NUR ---
NURSE NOTES: Received patient from ALEXYS Lindquist. Patient alert, talkative, and laying in semi-fowlers position in bed. No signs of distress or pain noted. Patient is ambulatory and able to make needs known. IV site checked, intact and patent, no signs of erythema, bleeding, redness, or infiltration. Reminded patient that she will be NPO at midnight and she verbalized understanding. Bed in lowest position, brakes on, and call light within reach. Will continue plan of care.
[2019-04-30 20:00] VITALS: BP 111/65
--- NOTE | 2019-04-30 20:28 | NUR ---
NURSE NOTES: Received call from Kym from [facility] department stating, "we'll have the pathologist speak to Dr. Marcum about the plateletpheresis" after explaining to them that Dr. Marcum needs platelets for patient's EGD with banding procedure in AM at 1000, 05/01/19.
[2019-04-30] MEDS: Atorvastatin 20mg tab ORAL SCH (20:32)
[2019-04-30] MEDS: Iron Sucrose 100 MG in NS 55 ML IV SCH (20:32)
--- NOTE | 2019-04-30 21:15 | General Progress Note ---
Assessment/Plan Status: stable Assessment/Plan: Assessment - Chronic hepatitis C - Advanced cirrhosis with portal HTN - Esophageal varicies seen on imaging - severe anemia, s/p transfusion - Iron deficiency Recommendations - Monitor CBC - EGD/varicieal banding in am - colonoscopy at later date - CT abd with IV contrast after EGD - check AFP - will benefit from HCV eradication - advised needs to see GI as outpatient - Continue IV Fe - PPI Subjective Allergies: Coded Allergies: IBUPROFEN (Unverified Allergy, Intermediate, 04/05/16) Objective Last 24 Hour Vital Signs Date Time Temp Pulse Resp B/P (MAP) Pulse Ox O2 Delivery O2 Flow Rate FiO2 04/30/19 20:00 75 04/30/19 20:00 97.9 71 18 111/65 (80) 97 04/30/19 16:00 98.7 66 18 96/56 (69) 100 04/30/19 16:00 67 04/30/19 12:00 65 04/30/19 12:00 98.6 74 18 120/71 (87) 98 04/30/19 09:55 70 121/48 04/30/19 09:00 Room Air 04/30/19 08:00 98.0 70 18 121/48 (72) 98 04/30/19 08:00 79 04/30/19 04:00 97.7 80 16 114/65 (81) 96 04/30/19 04:00 85 04/30/19 00:00 74 04/30/19 00:00 98.2 84 18 111/59 (76) 97 Intake and Output 04/29/19 04/30/19 19:00 07:00 Intake Total 850 ml 480 ml Balance 850 ml 480 ml Intake Oral 850 ml 480 ml # Voids 6 4 Laboratory Tests 04/30/19 05:38: White Blood Count 3.6L, Red Blood Count 4.21, Hemoglobin 9.0L, Hematocrit 29.3L , Mean Corpuscular Volume 70L, Mean Corpuscular Hemoglobin 21.3L, Mean Corpuscular Hemoglobin Concent 30.6L, Red Cell Distribution Width 24.3H, Platelet Count 56L, Mean Platelet Volume 7.7, Neutrophils (%) (Auto) , Lymphocytes (%) (Auto) , Monocytes (%) (Auto) , Eosinophils (%) (Auto) , Basophils (%) (Auto) , Differential Total Cells Counted 100, Neutrophils % ( Manual) 53, Lymphocytes % (Manual) 32, Monocytes % (Manual) 11H, Eosinophils % ( Manual) 3, Basophils % (Manual) 1, Band Neutrophils 0, Platelet Estimate DecreasedL, Platelet Morphology Normal, Anisocytosis 2+, Sodium Level 139, Potassium Level 3.5, Chloride Level 108H, Carbon Dioxide Level 23, Anion Gap 8, Blood Urea Nitrogen 13, Creatinine 0.8, Estimat Glomerular Filtration Rate > 60 , Glucose Level 103, Calcium Level 8.3L, Total Bilirubin 1.1H, Direct Bilirubin 0.4H, Aspartate Amino Transf (AST/SGOT) 55H, Alanine Aminotransferase (ALT/SGPT ) 36, Alkaline Phosphatase 135H, Pro-B-Type Natriuretic Peptide 1226H, Total Protein 7.0, Albumin 2.6L, Globulin 4.4, Albumin/Globulin Ratio 0.6L 04/30/19 14:00: Stool Occult Blood [Pending] Height (Feet): 5 Height (Inches): 2.00 Weight (Pounds): 184 Reddy Marcum MD Apr 30, 2019 21:15
--- NOTE | 2019-04-30 21:24 | NUR ---
NURSE NOTES: Called Kym again from [facility] to follow up with the platelets. Per Kym, "before I leave I'll send the order for the plateletpheresis and get it processed."
--- NOTE | 2019-04-30 22:09 | NUR ---
NURSE NOTES: Spoke to [facility] regarding patient's transporation status. Was told, "we have [address], but you'll be next. They should be there within 30-40 minutes." Addendum: 04/30/19 at 2212 by STEPH DO RN RN Wrong patient.
[2019-05-01] VITALS (11 sets, daily range): BP systolic 110–131; BP diastolic 43–69
--- NOTE | 2019-05-01 | Progress Note ---
DATE: 04/30/2019 CARDIOLOGY PROGRESS NOTE SUBJECTIVE: The patient is on iron replacement. Stool occult blood positive. She has no nausea, vomiting, chest pain, shortness of breath, or abdominal discomfort. OBJECTIVE: VITAL SIGNS: Blood pressure 121/48, pulse 70, and respirations 18. LUNGS: Clear. CARDIAC: Regular. ABDOMEN: Soft and nontender. EXTREMITIES: No edema. LABORATORY DATA: White count 3.6 and hemoglobin 9. Potassium 3.5, BUN 13, and creatinine 0.8. Pro-natriuretic peptide 1200. Magnesium yesterday 1.7. IMPRESSION: 1. Severe anemia. 2. Status post transfusion. 3. Cirrhotic liver. 4. Hypomagnesemia. 5. Borderline hypokalemia. 6. Moderate protein-calorie malnutrition. 7. Acute on chronic diastolic congestive heart failure. 8. Ischemic heart disease with stable angina. 9. Hypertensive heart disease with controlled blood pressure. PLAN: 1. Replace potassium. 2. IV magnesium was already given. 3. Iron replacement. 4. Hold anti-platelet drugs. 5. Maintain antianginal and anti-failure regimen. 6. Stable from cardiovascular standpoint for diagnostic upper endoscopy. Shaggy Babcock M.D. DR: KOJO JOB#: [id number] CC:
--- NOTE | 2019-05-01 02:32 | NUR ---
NURSE NOTES: Followed up with Laboratory department regarding plateletpheresis for patient in AM. Was told, "the wrong type of platelets were ordered from [facility]. We'll have it reordered STAT."
--- NOTE | 2019-05-01 03:07 | NUR ---
NURSE NOTES: Patient asleep in bed. No signs of distress or pain. Maintaining NPO status. Bed in lowest position, brakes on, siderails up x2, and call light within reach. Will continue to monitor.
--- NOTE | 2019-05-01 03:15 | Consultation ---
DATE OF CONSULTATION: 04/30/2019 GASTROENTEROLOGY CONSULTATION CONSULTING PHYSICIAN: Reddy Marcum M.D. CHIEF COMPLAINT: I was asked to see this patient by Dr. Michael Herrera for evaluation of anemia and cirrhosis. HISTORY OF PRESENT ILLNESS: The patient is a pleasant 68-year-old woman, who comes into the hospital for the first time. She apparently had been diagnosed with hepatitis C about 5 or 6 years ago. She has never had any significant decompensated liver diseases and denies any history of esophageal varices, varices, paracentesis, or hepatic encephalopathy. She apparently had an endoscopy and colonoscopy at [facility] a few years ago. This was negative. However, details are available. She does not drink alcohol. Denies any hematochezia. Her bowel movements are regular and she does not feel confused. PAST MEDICAL HISTORY: Remote history of hepatitis C, cirrhosis, hypertension, diabetes, history of heart failure. FAMILY HISTORY: Noncontributory. SOCIAL HISTORY: The patient does not smoke or drink alcohol. She is single. She has 7 children. REVIEW OF SYSTEMS: Otherwise negative. PHYSICAL EXAMINATION: GENERAL: A pleasant woman, seen in her room. HEENT: Normocephalic and atraumatic. Sclerae are anicteric. Oropharynx clear. NECK: Supple. CHEST: Clear to auscultation. CARDIOVASCULAR: Revealed a regular rate. ABDOMEN: Soft without tenderness or significant masses. EXTREMITIES: Revealed no edema. LABORATORY DATA: Noted. ASSESSMENT: This patient presents with what appears to be a longstanding hepatitis C with advanced portal hypertension and cirrhosis, which is visible on the imaging study. This also included evaluation of her portal hypertension and varices. The patient has significant anemia and therefore endoscopic evaluation will be appropriate. I would proceed with endoscopy for variceal banding since this would be high-risk event for her if she has future gastrointestinal bleeding with her degree of coagulopathy. Colonoscopy can be done as an outpatient, but I will first obtain outpatient colonoscopy results performed 2 years ago. In addition, prior to proceeding given the nature of procedure and the patient's anemia and heart disease. This was discussed with the chief of blood bank through the pathology staff. The patient should also receive . She was advised that this has to be done as an outpatient medications and that she should follow up with me for this purpose. At that point in the future, the patient may also need to see liver transplant team criteria at this time. RECOMMENDATIONS: Per above discussion and per orders written in the chart. Thank you for asking me to participate in the care of this patient. Reddy Marcum M.D. DR: Andres JOB#: [id number] CC:
--- NOTE | 2019-05-01 05:09 | NUR ---
NURSE NOTES: Per [facility], platelets are ready for transfusion at 0800.
[2019-05-01] MEDS: NovoLOG Insulin Flexpen SUBQ SCH ×4 (05:35→22:00)
--- NOTE | 2019-05-01 07:14 | NUR ---
HAND-OFF: Report given to ALEXYS Deras. Patient awake, talkative, and resting comfortably in bed. Patient in stable condition. Plan of care endorsed, plateletpheresis and EGD procedure, verbalized understanding.
[2019-05-01 07:22] LABS: HEMATOCRIT 31.3 % (37.0-47.0); HEMOGLOBIN 9.8 G/DL (12.0-16.0); MEAN CORPUSCULAR VOLUME 69 FL (80-99); PLATELET COUNT 81 K/UL (150-450); RED BLOOD COUNT 4.53 M/UL (4.20-5.40); RED CELL DISTRIBUTION WIDTH 24.8 % (11.6-14.8); WHITE BLOOD COUNT 4.1 K/UL (4.8-10.8)
--- NOTE | 2019-05-01 07:25 | NUR ---
NURSE NOTES: Received patient patient from Roney Rn. Patient is awake and alert. lying comfortably in bed. Denies pain or discomfort at this time. PAtient is currently NPO secondary to EGD in am. Also patient to received 1 unit of platelet prior to procedure. Safety precautions in place. Call mendoza within patients reach. will continue to monitor throughout the shift.
[2019-05-01 07:30] LABS: INR 1.2 (0.9-1.1)
[2019-05-01 08:02] LABS: ALANINE AMINOTRANSFERASE 46 U/L (12-78); ALBUMIN 2.8 G/DL (3.4-5.0); ALBUMIN/GLOBULIN RATIO 0.6 (1.0-2.7); ALKALINE PHOSPHATASE 131 U/L (46-116); ANION GAP 10 mmol/L (5-15); ASPARTATE AMINO TRANSFERASE 71 U/L (15-37); BILIRUBIN,TOTAL 1.2 MG/DL (0.2-1.0); BLOOD UREA NITROGEN 12 mg/dL (7-18); CALCIUM 8.7 MG/DL (8.5-10.1); CARBON DIOXIDE 23 MMOL/L (21-32); CHLORIDE 109 MMOL/L (98-107); CREATININE 0.8 MG/DL (0.55-1.30); POTASSIUM 3.5 MMOL/L (3.5-5.1); SODIUM 142 MMOL/L (136-145)
--- NOTE | 2019-05-01 08:03 | General Progress Note ---
Assessment/Plan Problem List: (1) Anemia ICD Codes: D64.9 - Anemia, unspecified SNOMED: 719332670 (2) Cirrhosis ICD Codes: K74.60 - Unspecified cirrhosis of liver SNOMED: 54392828 (3) Transaminitis ICD Codes: R74.0 - Nonspecific elevation of levels of transaminase and lactic acid dehydrogenase [LDH] SNOMED: 736354578 (4) Pancytopenia ICD Codes: D61.818 - Other pancytopenia SNOMED: 001554585 (5) Syncope ICD Codes: R55 - Syncope and collapse SNOMED: 735433012 Status: stable Assessment/Plan: PPI monitor for bleeding stool ob iron replacement endoscopy Subjective ROS Limited/Unobtainable: No Constitutional: Reports: malaise, weakness HEENT: Reports: no symptoms Cardiovascular: Reports: no symptoms Respiratory: Reports: no symptoms Gastrointestinal/Abdominal: Reports: no symptoms Genitourinary: Reports: no symptoms Neurologic/Psychiatric: Reports: no symptoms Endocrine: Reports: no symptoms Hematologic/Lymphatic: Reports: anemia Allergies: Coded Allergies: IBUPROFEN (Unverified Allergy, Intermediate, 04/05/16) All Systems: reviewed and negative except above Subjective no events. feels better. no bleeding noted. no cp/sob/degroot GI noted Objective Last 24 Hour Vital Signs Date Time Temp Pulse Resp B/P (MAP) Pulse Ox O2 Delivery O2 Flow Rate FiO2 05/01/19 04:00 64 05/01/19 04:00 98.1 72 18 121/66 (84) 97 05/01/19 00:00 98.3 67 18 120/66 (84) 99 05/01/19 00:00 69 04/30/19 21:00 Room Air 04/30/19 20:00 75 04/30/19 20:00 97.9 71 18 111/65 (80) 97 04/30/19 16:00 98.7 66 18 96/56 (69) 100 04/30/19 16:00 67 04/30/19 12:00 65 04/30/19 12:00 98.6 74 18 120/71 (87) 98 04/30/19 09:55 70 121/48 04/30/19 09:00 Room Air Intake and Output 04/30/19 05/01/19 18:59 06:59 Intake Total 880 ml 480 ml Balance 880 ml 480 ml Intake Oral 880 ml 480 ml # Voids 5 2 # Bowel Movements 2 Laboratory Tests 04/30/19 14:00: Stool Occult Blood [Pending] 05/01/19 05:50: White Blood Count 4.1L, Red Blood Count 4.53, Hemoglobin 9.8L, Hematocrit 31.3L , Mean Corpuscular Volume 69L, Mean Corpuscular Hemoglobin 21.6L, Mean Corpuscular Hemoglobin Concent 31.3L, Red Cell Distribution Width 24.8H, Platelet Count 81L, Mean Platelet Volume 8.8, Neutrophils (%) (Auto) , Lymphocytes (%) (Auto) , Monocytes (%) (Auto) , Eosinophils (%) (Auto) , Basophils (%) (Auto) , Neutrophils % (Manual) [Pending], Lymphocytes % (Manual) [Pending], Platelet Estimate [Pending], Platelet Morphology [Pending], Prothrombin Time 12.7H, Prothromb Time International Ratio 1.2H, Activated Partial Thromboplast Time 31, Sodium Level [Pending], Potassium Level [Pending] , Chloride Level [Pending], Carbon Dioxide Level [Pending], Blood Urea Nitrogen [Pending], Creatinine [Pending], Estimat Glomerular Filtration Rate [Pending], Glucose Level [Pending], Calcium Level [Pending], Total Bilirubin [Pending], Aspartate Amino Transf (AST/SGOT) [Pending], Alanine Aminotransferase (ALT/SGPT ) [Pending], Alkaline Phosphatase [Pending], Total Protein [Pending], Albumin [ Pending], Globulin [Pending], Alpha Fetoprotein [Pending] Height (Feet): 5 Height (Inches): 2.00 Weight (Pounds): 183 Michael Herrera MD May 01, 2019 08:03
[2019-05-01 08:04] LABS: BILIRUBIN,DIRECT 0.5 MG/DL (0.0-0.3)
--- NOTE | 2019-05-01 08:14 | NUR ---
CASE MANAGEMENT:REVIEW 05/01/19 SI: ANEMIA. HEP C. CIRRHOSIS. VARICES 98.1 72 64 18 121/66 97% ON RA H/H-9.8/31.3 PLT-81 TBILI+1.2 IS: PROTONIX PO QD NEURONTIN PO TID IV VENOFER QHS ALDACTONE PO QD PROZAC PO QD TOPROL XL PO QD : TELEMETRY STATUS DCP: FROM HOME PLAN: EGD W/BANDING PLATELETPHERESIS MAY NEED TO SEE LIVER TRANSPLANT TEAM OUTPATIENT
--- NOTE | 2019-05-01 08:37 | Anethesia Preoperative Eval ---
Anesthesia Pre-op PMH/ROS General Date of Evaluation: May 01, 2019 Time of Evaluation: 08:34 Anesthesiologist: remigio ASA Score: ASA 3 Mallampati Score Class I : Soft palate, uvula, fauces, pillars visible Class II: Soft palate, uvula, fauces visible Class III: Soft palate, base of uvula visible Class IV: Only hard plate visible Mallampati Classification: Class II Surgeon: nichole Diagnosis: anemia Surgical Procedure: egd w/banding Anesthesia History: none Social History: smoking - former smoker Family History: no anesthesia problems Allergies: Coded Allergies: IBUPROFEN (Unverified Allergy, Intermediate, 04/05/16) Medications: see eMAR Patient NPO?: Yes Past Medical History Cardiovascular: Reports: HTN, other - syncope Gastrointestinal/Genitourinary: Reports: other - transaminitis, hepatitis C Neurologic/Psychiatric: Reports: depression/anxiety Endocrine: Reports: DM Hematology/Immune: Reports: anemia, other - pancytopenia Musculoskeletal/Integumentary: Reports: other - right arm fracture PSxH Narrative: right arm fracture repair Anesthesia Pre-op Phys. Exam Physician Exam Last Vital Signs Date Time Temp Pulse Resp B/P (MAP) Pulse Ox O2 Delivery O2 Flow Rate FiO2 05/01/19 04:00 64 05/01/19 04:00 98.1 18 121/66 (84) 97 04/30/19 21:00 Room Air Constitutional: NAD Neurologic: CN 2-12 intact Cardiovascular: RRR Respiratory: CTA Gastrointestinal: S/NT/ND Airway Exam Mallampati Score: Class II MO: limited Neck: flexible TMD: 2fb ROM: limited Teeth: missing Anesthesia Pre-op A/P Labs Hematology Test 05/01/19 05:50 White Blood Count 4.1 K/UL (4.8-10.8) L Red Blood Count 4.53 M/UL (4.20-5.40) Hemoglobin 9.8 G/DL (12.0-16.0) L Hematocrit 31.3 % (37.0-47.0) L Mean Corpuscular Volume 69 FL (80-99) L Mean Corpuscular Hemoglobin 21.6 PG (27.0-31.0) L Mean Corpuscular Hemoglobin Concent 31.3 G/DL (32.0-36.0) L Red Cell Distribution Width 24.8 % (11.6-14.8) H Platelet Count 81 K/UL (150-450) L Mean Platelet Volume 8.8 FL (6.5-10.1) Neutrophils (%) (Auto) % (45.0-75.0) Lymphocytes (%) (Auto) % (20.0-45.0) Monocytes (%) (Auto) % (1.0-10.0) Eosinophils (%) (Auto) % (0.0-3.0) Basophils (%) (Auto) % (0.0-2.0) Differential Total Cells Counted 100 Neutrophils % (Manual) 50 % (45-75) Lymphocytes % (Manual) 34 % (20-45) Monocytes % (Manual) 10 % (1-10) Eosinophils % (Manual) 5 % (0-3) H Basophils % (Manual) 1 % (0-2) Band Neutrophils 0 % (0-8) Platelet Estimate Decreased L Platelet Morphology Normal Hypochromasia 2+ Anisocytosis 3+ Microcytosis 2+ Coagulation Test 05/01/19 05:50 Prothrombin Time 12.7 SEC (9.30-11.50) H Prothromb Time International Ratio 1.2 (0.9-1.1) H Activated Partial Thromboplast Time 31 SEC (23-33) Chemistry Test 05/01/19 05:50 Sodium Level 142 MMOL/L (136-145) Potassium Level 3.5 MMOL/L (3.5-5.1) Chloride Level 109 MMOL/L (98-107) H Carbon Dioxide Level 23 MMOL/L (21-32) Anion Gap 10 mmol/L (5-15) Blood Urea Nitrogen 12 mg/dL (7-18) Creatinine 0.8 MG/DL (0.55-1.30) Estimat Glomerular Filtration Rate > 60 mL/min (>60) Glucose Level 97 MG/DL (74-106) Calcium Level 8.7 MG/DL (8.5-10.1) Total Bilirubin 1.2 MG/DL (0.2-1.0) H Direct Bilirubin 0.5 MG/DL (0.0-0.3) H Aspartate Amino Transf (AST/SGOT) 71 U/L (15-37) H Alanine Aminotransferase (ALT/SGPT) 46 U/L (12-78) Alkaline Phosphatase 131 U/L (46-116) H Total Protein 7.4 G/DL (6.4-8.2) Albumin 2.8 G/DL (3.4-5.0) L Globulin 4.6 g/dL Albumin/Globulin Ratio 0.6 (1.0-2.7) L Alpha Fetoprotein Pending Risk Assessment & Plan Assessment: asa3 Plan: mac Status Change Before Surgery: No Pre-Antibiotics Drug: Chelsey Martin MD May 01, 2019 08:37
[2019-05-01] MEDS ORDERED: Atropine Inj 1mg/10ml Syr IV PRN (08:45)
[2019-05-01] MEDS ORDERED: Midazolam 2mg/2ml Inj IVP PRN (08:45)
[2019-05-01] MEDS ORDERED: fentaNYL 100 mcg/2 mL IV PRN (08:45)
[2019-05-01] MEDS ORDERED: DiphenhydrAMINE 50mg/ml Inj IVP PRN (08:45)
[2019-05-01] MEDS ORDERED: Lidocaine 1% MPF 10mg/ml 5ml ONE (09:30)
[2019-05-01] MEDS ORDERED: Propofol 200mg/20ml IV ONE (09:30)
--- NOTE | 2019-05-01 09:50 | NUR ---
NURSE NOTES: 1 unit of platelet transfusion started @0845 completed @0935. protocol followed . no adverse reaction noted. Patient left floor for EGD. will follow.
[2019-05-01] MEDS ORDERED: NS 500ML IVPB ONE (10:00)
--- NOTE | 2019-05-01 10:12 | General Progress Note ---
Assessment/Plan Status: stable Assessment/Plan: Assessment - Chronic hepatitis C - Advanced cirrhosis with portal HTN - Esophageal varicies seen on imaging - severe anemia, s/p transfusion - Iron deficiency - thrombocytopenia Recommendations - Monitor CBC - EGD/varicieal banding today - colonoscopy at later date - CT abd with IV contrast after EGD - check AFP - will benefit from HCV eradication - advised needs to see GI as outpatient - Continue IV Fe - PPI Subjective Allergies: Coded Allergies: IBUPROFEN (Unverified Allergy, Intermediate, 04/05/16) Subjective Above noted I was notified by GI RN that am platelets 81 patient had already received her plt transfusion no bleeding overnight NPO for EGD / banding Objective Last 24 Hour Vital Signs Date Time Temp Pulse Resp B/P (MAP) Pulse Ox O2 Delivery O2 Flow Rate FiO2 05/01/19 08:00 97.5 62 18 122/67 (85) 94 05/01/19 04:00 64 05/01/19 04:00 98.1 72 18 121/66 (84) 97 05/01/19 00:00 98.3 67 18 120/66 (84) 99 05/01/19 00:00 69 04/30/19 21:00 Room Air 04/30/19 20:00 75 04/30/19 20:00 97.9 71 18 111/65 (80) 97 04/30/19 16:00 98.7 66 18 96/56 (69) 100 04/30/19 16:00 67 04/30/19 12:00 65 04/30/19 12:00 98.6 74 18 120/71 (87) 98 Intake and Output 04/30/19 05/01/19 19:00 07:00 Intake Total 880 ml 480 ml Balance 880 ml 480 ml Intake Oral 880 ml 480 ml # Voids 5 2 # Bowel Movements 2 Laboratory Tests 04/30/19 14:00: Stool Occult Blood [Pending] 05/01/19 05:50: White Blood Count 4.1L, Red Blood Count 4.53, Hemoglobin 9.8L, Hematocrit 31.3L , Mean Corpuscular Volume 69L, Mean Corpuscular Hemoglobin 21.6L, Mean Corpuscular Hemoglobin Concent 31.3L, Red Cell Distribution Width 24.8H, Platelet Count 81L, Mean Platelet Volume 8.8, Neutrophils (%) (Auto) , Lymphocytes (%) (Auto) , Monocytes (%) (Auto) , Eosinophils (%) (Auto) , Basophils (%) (Auto) , Differential Total Cells Counted 100, Neutrophils % ( Manual) 50, Lymphocytes % (Manual) 34, Monocytes % (Manual) 10, Eosinophils % ( Manual) 5H, Basophils % (Manual) 1, Band Neutrophils 0, Platelet Estimate DecreasedL, Platelet Morphology Normal, Hypochromasia 2+, Anisocytosis 3+, Microcytosis 2+, Prothrombin Time 12.7H, Prothromb Time International Ratio 1.2H , Activated Partial Thromboplast Time 31, Sodium Level 142, Potassium Level 3.5 , Chloride Level 109H, Carbon Dioxide Level 23, Anion Gap 10, Blood Urea Nitrogen 12, Creatinine 0.8, Estimat Glomerular Filtration Rate > 60, Glucose Level 97, Calcium Level 8.7, Total Bilirubin 1.2H, Direct Bilirubin 0.5H, Aspartate Amino Transf (AST/SGOT) 71H, Alanine Aminotransferase (ALT/SGPT) 46, Alkaline Phosphatase 131H, Total Protein 7.4, Albumin 2.8L, Globulin 4.6, Albumin/Globulin Ratio 0.6L, Alpha Fetoprotein [Pending] Height (Feet): 5 Height (Inches): 2.00 Weight (Pounds): 183 Objective WDWN woman NCAT supple CTA RR abd soft no edema non focal Reddy Marcum MD May 01, 2019 10:12
--- NOTE | 2019-05-01 10:13 | Pre-Procedure Note/Attestation ---
Pre-Procedure Note/Attestation Complete Prior to Procedure Planned Procedure: not applicable Procedure Narrative: EGD possible banding Indications for Procedure Pre-Operative Diagnosis: anemia, esophageal varicies Attestation I attest that I discussed the nature of the procedure; its benefits; risks and complications; and alternatives (and the risks and benefits of such alternatives ), prior to the procedure, with the patient (or the patient's legal underwriting sales representative). I attest that, if there was a reasonable possibility of needing a blood transfusion, the patient (or the patient's legal underwriting sales representative) was given the [facility] standardized written summary, pursuant to the Maik Sumit Blood Safety Act ([place] Health and Safety Code # 1645, as amended). I attest that I re-evaluated the patient just prior to the surgery and that there has been no change in the patient's H&P, except as documented below: Reddy Marcum MD May 01, 2019 10:13
[2019-05-01] MEDS ORDERED: Omnipaque-300 100ml vial INJ PRN (10:30)
--- NOTE | 2019-05-01 10:45 | Immediate Post-Op Evaluation ---
Immediate Post-Op Evalulation Immediate Post-Op Evalulation Procedure: egd w/bx Date of Evaluation: May 01, 2019 Time of Evaluation: 10:43 IV Fluids: 50ml 0.9ns Blood Products: none Estimated Blood Loss: negligible Blood Pressure Systolic: 110 Blood Pressure Diastolic: 43 Pulse Rate: 60 Respiratory Rate: 18 O2 Sat by Pulse Oximetry: 99 Temperature (Fahrenheit): 97.3 Pain Score (1-10): 0 Nausea: No Vomiting: No Complications none Patient Status: awake, reacts, patent Hydration Status: adequate Drug: Chelsey Martin MD May 01, 2019 10:45
--- NOTE | 2019-05-01 10:46 | 48 Hour Post Anesthesia Eval ---
Post Anesthesia Evaluation Procedure: egd w/bx Date of Evaluation: May 01, 2019 Time of Evaluation: 10:45 Blood Pressure Systolic: 112 0: 60 Pulse Rate: 62 Respiratory Rate: 18 Temperature (Fahrenheit): 97.3 O2 Sat by Pulse Oximetry: 99 Airway: patent Nausea: No Vomiting: No Pain Intensity: 0 Hydration Status: adequate Cardiopulmonary Status: stable Mental Status/LOC: patient returned to baseline Post-Anesthesia Complications: none Follow-up care needed: N/A Chelsey Mercedes MD May 01, 2019 10:46
[2019-05-01] MEDS: Metoprolol Succinate XL 50mg tab ORAL SCH (11:14)
[2019-05-01] MEDS: Spironolactone 25mg tab ORAL SCH (11:14)
--- NOTE | 2019-05-01 11:30 | NUR ---
NURSE NOTES: Patient returned to the floor S/p EGD. VSS. continue NPO for CT ABD today with PO/IV contrast. Patient aware of the prodcedure. Consent signed by patient. will follow.
--- NOTE | 2019-05-01 13:25 | NUR ---
*-* INSURANCE *-* ALL CLINICALS AND REVIEWS HAVE BEEN FAXED TO: [employer] GOME[employer]:KATHIE WALTER# [id number] P: [phone] F: [phone]
--- NOTE | 2019-05-01 15:53 | Diagnostic Imaging Report ---
Indication: Hepatitis C. Screening for hepatoma Technique: Continuous helical transaxial imaging of the abdomen was obtained from the lung bases to the iliac crests during intravenous contrast administration. Arterial, venous, delayed phases obtained. Coronal 2-D reformats were also obtained. Study obtained in a Siemens sensation [address] Total Dose length Product (DLP): [address] Dose Index Volume (CTDIvol): 254 mGy Comparison: None Findings: There is hepatosplenomegaly demonstrated with the 20 cm liver and 17 cm spleen. There is nodularity of the liver consistent with cirrhosis. Enhancement is homogeneous with no identification of a mass. Portal vein is patent. There is thickening of the wall the gallbladder. There is no biliary ductal dilatation identified. There is a trace amount of ascites. There is a tiny hypodensity in the left kidney probably a cyst. There is a small umbilical hernia containing fat as well as a patent umbilical vein. There are portosystemic varices as well in the upper abdomen surrounding the cardia of the stomach distal esophagus. IMPRESSION: No evidence of a hepatoma or liver mass. Cirrhosis with signs of portal hypertension including trace ascites, portosystemic varices and splenomegaly. Hepatomegaly also noted on this study. Small umbilical hernia containing fat and caput medusa. Atherosclerotic disease. Tiny left renal cyst. The CT scanner at [facility] is accredited by the [employer] and the scans are performed using protocols designed to limit radiation exposure to as low as reasonably achievable to attain images of sufficient resolution adequate for diagnostic evaluation.
--- NOTE | 2019-05-01 19:15 | NUR ---
HAND-OFF: Report given to Neel Cook.Patient stable. Plan of care endorsed.
--- NOTE | 2019-05-01 19:34 | NUR ---
NURSE NOTES: Received report from ALEXYS Deras, patient in stable condition,AOx4, denies pain at this time, ambulatory, on RA, IV site on right wrist G20, asymptomatic, intact, patent, bed low&locked, side rails upx2,call light within reach,will continue to monitor and reassess. Family at bedside
--- NOTE | 2019-05-01 20:42 | Endoscopy Procedure Note ---
Endoscopy Procedure Note General Indication for Procedure: anemia Procedures Performed: EGD Operative Findings/Diagnosis: gastric varix, no esophageal vx, mild gastritis - bx Specimen: yes Pt Tolerated Procedure Well: No Estimated Blood Loss: none Anesthesia Anesthesiologist: see report Anesthesia: moderate sedation Medications Medication Given: see anesthesia record Inserted Devices Implant(s) used?: No GI Core Measures 50 yrs or older w/o bx or poly: Not Applicable 10yrs. F/U recommended: Not Applicable If not recommended, why?: Reddy Marcum MD May 01, 2019 20:42
--- NOTE | 2019-05-01 20:44 | Brief Operative Note ---
Immediate Post Operative Note Operative Note Chief Complaint: anemia Pre-op Diagnosis: anemia, esophageal varicies Procedure: EGd/bx Post-op Diagnosis: gastric Vx, gastritis Surgeon: adelso Anesthesiologist: Carl Aguiar Anesthesia: MAC Specimen: yes Complications: none Condition: stable Fluids: recorded Estimated Blood Loss: none Drains: none Implant(s) used?: No Reddy Marcum MD May 01, 2019 20:44
[2019-05-01] MEDS: Atorvastatin 20mg tab ORAL SCH (21:49)
[2019-05-01] MEDS: Iron Sucrose 100 MG in NS 55 ML IV SCH (21:49)
--- NOTE | 2019-05-01 23:30 | Procedure Note ---
DATE OF PROCEDURE: 05/01/2019 GASTROENTEROLOGY PROCEDURE REPORT PROCEDURE: Upper gastrointestinal endoscopy with biopsy. SURGEON: Reddy Marcum M.D. ANESTHESIA: Please see the separate anesthesiologist notes for details. PRE-ENDOSCOPIC DIAGNOSES: Esophageal varices seen on the CT scan as well as anemia. POST-ENDOSCOPIC DIAGNOSES: 1. No evidence of significant esophageal varices. 2. Large gastric varix in the cardia of stomach. 3. Mild antral erythema status post biopsy. 4. No evidence of ulceration identified. PROCEDURE IN DETAIL: The procedure, its risks, indications, alternatives, and possible complications were explained to the patient and informed consent was obtained. The patient was then sedated in the left lateral decubitus position. A diagnostic upper endoscope was introduced through the oropharynx and advanced to the duodenum without difficulty. The endoscope was then gradually withdrawn and the mucosa examined carefully. Examination of the upper gastrointestinal mucosa did not reveal any significant esophageal varices and certainly no banding in this area was felt to be necessary. In the cardia of the stomach, however was a large gastric varix identified with no evidence of ulcerations or bleeding. Photo documentation was obtained. The antrum was mildly erythematous and biopsies were obtained to rule out the Helicobacter pylori. There were no ulcers identified. The endoscope was removed. The patient was sent to recovery in good condition. COMPLICATIONS: None. ASSESSMENT: This examination was notable for gastric varix which is related to the patient's portal hypertension. If there are esophageal varices on the CT scan, they are not large enough to protrude into the esophageal lumen and as such she did not require any endoscopic treatment. The gastric varix however is problem and will be risk factor for recurrent bleeding. The patient is a nonsmoker, should be referred for TIPS procedure at [facility]. RECOMMENDATIONS: 1. Resume oral diet. 2. Check CT scan with IV contrast to evaluate the liver parenchyma for hepatocellular carcinoma. 3. Begin Inderal. 4. Outpatient TIPS procedure. Thank you for asking me to participate in care of this patient. Reddy Marcum M.D. DR: Tico JOB#: [id number] CC:
[2019-05-02] VITALS: BP 123/58
--- NOTE | 2019-05-02 00:15 | Progress Note ---
DATE: 05/01/2019 CARDIOLOGY PROGRESS NOTE SUBJECTIVE: The patient is status post upper endoscopy today. No complications were noted. Findings were notable only for gastric varix and gastritis. OBJECTIVE: VITAL SIGNS: Blood pressure 121/66, pulse 72, respiratory rate 18, and afebrile. LUNGS: Clear. CARDIAC: Regular. Normal S1, S2. No murmur. ABDOMEN: Soft. EXTREMITIES: No edema. IMPRESSION: 1. Anemia, iron deficiency. 2. Acute diastolic congestive heart failure. 3. Cirrhosis. PLAN: 1. Iron replacement. 2. Avoid antiplatelet therapy. 3. Continue beta-hiwot and anti-failure/antihypertensive medications with titration. 4. Discharge planning. Shaggy Babcock M.D. DR: SALVADOR JOB#: [id number] CC:
[2019-05-02 04:00] VITALS: BP 117/57
[2019-05-02] MEDS: NovoLOG Insulin Flexpen SUBQ SCH (06:30)
--- NOTE | 2019-05-02 07:14 | NUR ---
HAND-OFF: Report given to ALEXYS Deras,patient in stable condition,plan of care endorsed.
[2019-05-02 07:17] LABS: HEMATOCRIT 33.3 % (37.0-47.0); HEMOGLOBIN 10.3 G/DL (12.0-16.0); MEAN CORPUSCULAR VOLUME 72 FL (80-99); PLATELET COUNT 66 K/UL (150-450); RED BLOOD COUNT 4.61 M/UL (4.20-5.40); RED CELL DISTRIBUTION WIDTH 22.8 % (11.6-14.8); WHITE BLOOD COUNT 3.7 K/UL (4.8-10.8)
--- NOTE | 2019-05-02 07:20 | NUR ---
NURSE NOTES: Patient received from Neel Cook. Patient awake and alert siting up in bed. Daughter at bedside. denies pain or discomfort. Patient reminded of safety precautions. call mendoza within patients reached. bed locked to lowest position. side rails X2 up. Will attend to patients needs and continue to monitor.
[2019-05-02] MEDS ORDERED: SPIRONOLACTONE25 MG ORAL (07:38)
[2019-05-02] MEDS ORDERED: Metoprolol Succinate ORAL (07:38)
[2019-05-02] MEDS ORDERED: PANTOPRAZOLE SO40 MG ORAL (07:38)
[2019-05-02] MEDS ORDERED: FLUOXETINE HCL20 MG ORAL (07:38)
[2019-05-02] MEDS ORDERED: GABAPENTIN600 MG ORAL (07:38)
[2019-05-02 08:00] VITALS: BP 121/60
[2019-05-02 08:00] LABS: ALANINE AMINOTRANSFERASE 51 U/L (12-78); ALBUMIN 2.8 G/DL (3.4-5.0); ALBUMIN/GLOBULIN RATIO 0.6 (1.0-2.7); ALKALINE PHOSPHATASE 114 U/L (46-116); ANION GAP 9 mmol/L (5-15); ASPARTATE AMINO TRANSFERASE 77 U/L (15-37); BILIRUBIN,TOTAL 1.1 MG/DL (0.2-1.0); BLOOD UREA NITROGEN 13 mg/dL (7-18); CALCIUM 8.3 MG/DL (8.5-10.1); CARBON DIOXIDE 24 MMOL/L (21-32); CHLORIDE 105 MMOL/L (98-107); CREATININE 0.8 MG/DL (0.55-1.30); POTASSIUM 3.7 MMOL/L (3.5-5.1); SODIUM 138 MMOL/L (136-145)
--- NOTE | 2019-05-02 08:00 | General Progress Note ---
Assessment/Plan Status: stable Assessment/Plan: Assessment - Chronic hepatitis C - Advanced cirrhosis with portal HTN - Large gastric varix - severe anemia, s/p transfusion - Iron deficiency - thrombocytopenia Recommendations - change Metoprolol to Nadolol 40 mg po qd, if OK with cardiology - colonoscopy at later date - Will refer [facility] liver [facility] team as outpatient - check AFP - pending - will benefit from HCV eradication - advised needs to see GI as outpatient - Continue IV Fe - PPI Subjective Allergies: Coded Allergies: IBUPROFEN (Unverified Allergy, Intermediate, 04/05/16) Subjective Above noted Feels OK EGD results d/w patient Objective Last 24 Hour Vital Signs Date Time Temp Pulse Resp B/P (MAP) Pulse Ox O2 Delivery O2 Flow Rate FiO2 05/02/19 04:00 66 05/02/19 04:00 98.0 67 18 117/57 (77) 95 05/02/19 00:00 73 05/02/19 00:00 99.2 68 18 123/58 (79) 96 05/01/19 21:00 Room Air 05/01/19 20:00 74 05/01/19 20:00 97.4 65 18 124/61 (82) 96 05/01/19 16:00 98.4 59 18 131/69 (89) 95 05/01/19 16:00 70 05/01/19 12:00 73 05/01/19 12:00 98.2 63 18 124/61 (82) 95 05/01/19 11:14 64 125/80 05/01/19 10:55 97.4 65 20 126/64 96 Room Air 05/01/19 10:46 62 18 99 05/01/19 10:45 62 19 131/68 96 Room Air 05/01/19 10:45 60 18 99 05/01/19 10:40 64 25 126/58 95 Room Air 05/01/19 10:35 62 22 112/60 96 Room Air 05/01/19 10:32 97.3 60 21 110/43 98 Nasal Cannula 3 05/01/19 09:00 Room Air 05/01/19 08:00 61 05/01/19 08:00 97.5 62 18 122/67 (85) 94 Intake and Output 05/01/19 05/02/19 19:00 07:00 Intake Total 630 ml Output Total 0 ml Balance 630 ml Intake Oral 480 ml IV Total 150 ml Output Estimated Blood Loss 0 ml # Voids 6 7 # Bowel Movements 1 Laboratory Tests 05/02/19 05:47: White Blood Count 3.7L, Red Blood Count 4.61, Hemoglobin 10.3L, Hematocrit 33.3L , Mean Corpuscular Volume 72L, Mean Corpuscular Hemoglobin 22.3L, Mean Corpuscular Hemoglobin Concent 30.9L, Red Cell Distribution Width 22.8H, Platelet Count 66L, Mean Platelet Volume 8.2, Neutrophils (%) (Auto) , Lymphocytes (%) (Auto) , Monocytes (%) (Auto) , Eosinophils (%) (Auto) , Basophils (%) (Auto) , Neutrophils % (Manual) [Pending], Lymphocytes % (Manual) [Pending], Platelet Estimate [Pending], Platelet Morphology [Pending], Sodium Level [Pending], Potassium Level [Pending], Chloride Level [Pending], Carbon Dioxide Level [Pending], Blood Urea Nitrogen [Pending], Creatinine [Pending], Estimat Glomerular Filtration Rate [Pending], Glucose Level [Pending], Calcium Level [Pending], Total Bilirubin [Pending], Aspartate Amino Transf (AST/SGOT) [ Pending], Alanine Aminotransferase (ALT/SGPT) [Pending], Alkaline Phosphatase [ Pending], Total Protein [Pending], Albumin [Pending], Globulin [Pending] Height (Feet): 5 Height (Inches): 2.00 Weight (Pounds): 183 Objective WDWN woman NCAT supple CTA RR abd soft no edema non focal Reddy Marcum MD May 02, 2019 08:00
[2019-05-02 08:06] LABS: BILIRUBIN,DIRECT 0.4 MG/DL (0.0-0.3)
--- NOTE | 2019-05-02 09:29 | NUR ---
NURSE NOTES: Received order from Dr. Herrera for discharge home with home health. Message left to condominium manager Christy and Charge nurse made another keycase assembler aware. Patient Picked up by daughter. Discussed discharge instructions and verbalizes understanding. Patient left floor stable, ambulating with steady gait. Patient made aware not to take lopressor until noon today as per Dr. Marcum. All belongings and medications taken by patient. IV and cardiac monitoring removed.
--- NOTE | 2019-05-02 11:20 | NUR ---
DISCHARGE INFORMATION PATIENT HAS BEEN REFERRED TO [facility] T: [phone] F: [phone]
--- NOTE | 2019-05-02 12:45 | Consultation ---
DATE OF CONSULTATION: 05/01/2019 HEMATOLOGY/ONCOLOGY CONSULTATION CONSULTING PHYSICIAN: Addi Farr M.D. REFERRING PHYSICIAN: Michael Herrera M.D. REASON FOR CONSULTATION: Severe anemia. HISTORY OF PRESENT ILLNESS: The patient is a pleasant 68-year-old female who presents with significant shortness of breath. The patient has been admitted to the hospital on 04/27/2019. The patient has a history of diabetes, hypertension, hepatitis C, has had significant exertional dyspnea. The patient has been noted on admission to have a hemoglobin of 3.7 with white count 2.8 and platelet count of 45,000. During the hospitalization, the patient underwent CT scan of the abdomen and pelvis with noncontrast and subsequently CT scan of abdomen with contrast as well as portal vein thrombosis. The patient's laboratory data demonstrated an INR of 1.2 with a PTT of 31. The patient's creatinine was noted to be at 0.8 with iron saturation of 2%. The patient has a bilirubin of 1.2, albumin of 2.8 with globulin of 4.6. The patient's TSH was 2.978. The patient has been evaluated by Gastroenterology and has undergone upper endoscopy on 05/01/2019 significant varices. PAST MEDICAL HISTORY: As noted above. PAST SURGICAL HISTORY: The patient does not recall any. FAMILY HISTORY: The patient's father apparently had a history of head and neck cancer. ALLERGIES: Per electronic medical records. MEDICATIONS: Per electronic medical records. REVIEW OF SYSTEMS: CONSTITUTIONAL: The patient denies any headache. PULMONARY: The patient has shortness of breath. CARDIAC: The patient denies chest pain. GASTROINTESTINAL: The patient has abdominal pain. NEUROLOGIC: The patient denies any focal weakness. SKIN: The patient denies any bruising or petechiae. PHYSICAL EXAMINATION: VITAL SIGNS: Blood pressure of 120/70, pulse of 80, breathing at 20, temperature 98.3. HEAD AND NECK: Sclerae anicteric. CHEST: Rhonchi bilaterally. CARDIOVASCULAR: Regular rhythm. S1 and S2. ABDOMEN: Distended. No rebound or guarding. EXTREMITIES: There is no edema. NEUROLOGIC: Nonfocal. LABORATORY AND DIAGNOSTIC DATA: As noted above. ASSESSMENT AND PLAN: 1. Severe anemia with significant iron deficiency with a history of esophageal varices. The patient is currently status post transfusions , IV iron. The patient is to be evaluated as an outpatient with full anemia workup including evaluation of SPEP and UPEP, B12, folate, retic count, . The patient is currently doing quite stable and had a full anemia workup. Leukopenia evaluation can be done as outpatient basis. 2. Diabetes, stable. 3. Hypertension, stable. 4. Symptomatic shortness of breath. Most likely has severe anemia, currently resolved. 5. Hepatitis C. The patient is to be treated. I will defer treatment to the porcelain waxer. The patient has a risk of liver cancer and is to have a liver cancer screening every 6 months. Addi Farr M.D. DR: JESSI JOB#: [id number] CC:
--- NOTE | 2019-05-02 21:15 | Discharge Summary ---
DATE OF ADMISSION: 04/27/2019 DATE OF DISCHARGE: 05/02/2019 ADMISSION DIAGNOSES: 1. Severe anemia, rule out gastrointestinal bleed. 2. Diabetes. 3. Hypertension. 4. Cirrhosis. 5. Hyperlipidemia. 6. History of depression. DISCHARGE DIAGNOSES: 1. Severe anemia, rule out gastrointestinal bleed. 2. Diabetes. 3. Hypertension. 4. Cirrhosis. 5. Hyperlipidemia. 6. History of depression. HOSPITAL COURSE: The patient was admitted with complaints of generalized weakness. She had a hemoglobin of 3.7. Her stool occult blood was negative. She had evidence of cirrhosis. She did have a history of hepatitis C. She underwent endoscopy and was found to have esophageal varices that were not bleeding. She underwent banding. She received iron supplements. On discharge, she was stable. She will be discharged home. She has been asked to follow up in one week in the office. DISCHARGE MEDICATIONS: Please see discharge medication list for discharge medications. DIET: Cardiac diet. ACTIVITIES: Ad-rory. Michael Herrera M.D. DR: DARSHANA JOB#: [id number] CC:
--- NOTE | 2019-05-03 01:15 | Progress Note ---
DATE: 05/02/2019 CARDIOLOGY PROGRESS NOTE SUBJECTIVE: Endoscopy report is reviewed. Discussed yesterday. Outpatient liver transplant evaluation is recommended as well as colonoscopy. The patient is also recommended for eradication therapy for hepatitis C. OBJECTIVE: VITAL SIGNS: Blood pressure 117/57, heart rate 67, and respiratory rate 18. LUNGS: Clear. CARDIAC: Regular. ABDOMEN: Soft. EXTREMITIES: No edema. IMPRESSION: 1. Hepatitis C. 2. Cirrhosis. 3. Gastric varix. 4. Iron deficiency with anemia. 5. Acute on chronic diastolic congestive heart failure. PLAN: 1. Change to nonselective beta-hiwot. 2. No anti-platelet therapy. 3. Iron replacement. 4. Outpatient followup as noted above. Shaggy Babcock M.D. DR: PEDRO JOB#: [id number] CC:
--- NOTE | 2019-05-05 16:28 | NUR ---
*-* INSURANCE *-* DISCHARGE SUMMARY AND UPDATED CLINICAL BEEN FAXED TO: [employer]:KATHIE WALTER# [id number] P: [phone] F: [phone]
== END 2019-05-02 09:26 | disposition home health service (06) | DRG 660 ==
LOC: EMR 19:41 → EDBEDREQSVC 20:06 → EDBEDREQ 20:07 → 2E 20:10 → EDBEDREQSVC 04-28 04:38 → EDBEDREQ 04-28 04:40 → 2E 04-28 06:09
PROC: 30233N1 Transfusion of Nonautologous Red Blood Cells into Peripheral Vein, Percutaneous Approach (ICD-10-PCS; 2019-04-27)
PROC: 30233R1 Transfusion of Nonautologous Platelets into Peripheral Vein, Percutaneous Approach (ICD-10-PCS; 2019-05-01)
PROC: 0DB78ZX Excision of Stomach, Pylorus, Via Natural or Artificial Opening Endoscopic, Diagnostic (ICD-10-PCS; principal; 2019-05-01 10:16)
DX: D61.818 Other pancytopenia (principal); I11.0 Hypertensive heart disease with heart failure; I50.33 Acute on chronic diastolic (congestive) heart failure; E44.0 Moderate protein-calorie malnutrition; I86.4 Gastric varices; D50.9 Iron deficiency anemia, unspecified; Z68.33 Body mass index [BMI] 33.0-33.9, adult; K74.60 Unspecified cirrhosis of liver; R74.0 Nonspecific elevation of levels of transaminase and lactic acid dehydrogenase [LDH]; E11.9 Type 2 diabetes mellitus without complications; E78.5 Hyperlipidemia, unspecified; Z95.5 Presence of coronary angioplasty implant and graft; I45.19 Other right bundle-branch block; B18.2 Chronic viral hepatitis C; K76.6 Portal hypertension; I25.118 Atherosclerotic heart disease of native coronary artery with other forms of angina pectoris; E83.42 Hypomagnesemia; R55 Syncope and collapse; Z88.6 Allergy status to analgesic agent
CPT/HCPCS: 36415; 74160; 74176; 80048; 80053; 81001; 82105; 82248; 82270; 82728; 82962; 83036; 83540; 83550; 83690; 83735; 83880; 84443; 84484; 85007; 85025; 85044; 85060; 85610; 85730; 86850; 86900; 86901; 86920; 93005; 93306; 94003; 94150; 99285; J1815; J8499